=== PATIENT | male | born 1960 | race Caucasian/White ===

== ENCOUNTER 2020-08-23 16:27 | Emergency (ER) | payer BC ==
[~2020-08-23] VITALS: Ht 172.7 cm; Wt 102.6 kg
[2020-08-23] MEDS ORDERED: LISI40TA4 (16:39)
[2020-08-23] MEDS ORDERED: NOVOINJ SC (16:39)
[2020-08-23] MEDS ORDERED: METF500T13 PO (16:44)
[2020-08-23] MEDS ORDERED: LIDOCAINE 5% (LIDODERM) PATCH TD ONE (17:10)
[2020-08-23] MEDS ORDERED: ACETAMINOPHEN 500 MG TAB PO ONE (17:10)
--- NOTE | 2020-08-23 17:48 | REP ---
INDICATION: fall, pt tender. COMPARISON: None. TECHNIQUE: Four views right ribs, PA view chest. FINDINGS: There is a fracture of the right 5th rib. The end of the right 3rd rib is bifid. No other rib fracture is visualized. There is a small right apical pneumothorax. There are mild atelectatic changes in the right lung base. Heart is not enlarged and the mediastinal silhouette is unremarkable. IMPRESSION: Fracture right 5th rib. Small right apical pneumothorax. Mild atelectatic changes right lung base. <Electronically signed by Scott Gleason > 08/23/20 [id number]
--- NOTE | 2020-08-23 17:49 | REP ---
INDICATION: fall, pt tender COMPARISON: None. TECHNIQUE: Four views left hand. FINDINGS: There is no evidence of acute fracture, dislocation, or intrinsic bone disease. IMPRESSION: No fracture or dislocation. <Electronically signed by Scott Gleason > 08/23/20 [id number]
[2020-08-23] MEDS ORDERED: PERCOCET 5MG/325MG TAB PO ONE (18:15)
[2020-08-23] MEDS ORDERED: ONDANSETRON 4MG/2ML VIAL IV ONE (19:35)
[2020-08-23] MEDS ORDERED: ONDANSETRON 4 MG ORAL DISINTEGRATING TAB PO ONE (19:50)
[2020-08-23] MEDS ORDERED: **NOTE PATIENT COMMENT** MISC XX SCH (21:00)
[2020-08-24] MEDS ORDERED: ONDANSETRON 4 MG ORAL DISINTEGRATING TAB PO ONE (00:10)
[2020-08-24] MEDS ORDERED: NORCO 5/325MG TABLET (BULK FOR ED) PO ONE (00:10)
[2020-08-24] MEDS ORDERED: ONDA4TAB6 PO (00:18)
[2020-08-24] MEDS ORDERED: HYDR-3713 PO (00:18)
[2020-08-24] MEDS ORDERED: ASPE4PAD TOP (00:18)
--- NOTE | 2020-08-24 01:14 | REPVR ---
PROCEDURE INFORMATION: Exam: XR Chest Exam date and time: 08/23/2020 11:53 PM Age: 59 years old Clinical indication: Abnormal findings; Other: Right apical ptx, repeat TECHNIQUE: Imaging protocol: XR of the chest Views: 2 views. COMPARISON: CR Ribs uni W-PA CHEST ONLY 2020-08-23 17:18 FINDINGS: Lungs: See "Pleural spaces" finding. Pleural spaces: Small bilateral pleural effusions with associated atelectasis. Trace residual right apical pneumothorax, barely discernible. Heart/Mediastinum: Unremarkable. No cardiomegaly. Bones/joints: Right lateral rib fractures. IMPRESSION: Trace residual right apical pneumothorax, barely discernible. Electronically signed by: Luca Warren On 08/24/2020 01:15:13 AM
[2020-08-24 01:32] VITALS: BP 151/75
== END 2020-08-24 01:37 | disposition home or self-care (01) ==
LOC: M ED 16:27
DX: S22.31XA Fracture of one rib, right side, initial encounter for closed fracture (principal); S60.932A Unspecified superficial injury of left thumb, initial encounter; E11.9 Type 2 diabetes mellitus without complications; I10 Essential (primary) hypertension; Y92.838 Other recreation area as the place of occurrence of the external cause; Y93.23 Activity, snow (alpine) (downhill) skiing, snowboarding, sledding, tobogganing and snow tubing; Z79.4 Long term (current) use of insulin; Z91.030 Bee allergy status
CPT/HCPCS: 71046; 71101; 73130; 99284; Q0162